=== PATIENT | female | born 1990 | race African-American/Black ===

== ENCOUNTER 2018-07-13 16:23 | Emergency (ER) | payer OTHER ==
[2018-07-13 17:50] LABS: ABS Basophils 0.1 10^3/ul (0-0.2); ABS Eosinophils 0.4 10^3/ul (0-0.6); ABS Monocytes 0.5 10^3/ul (0-0.8); ABS Neutrophils 3.9 10^3/ul (1.5-7.7); ABS Nucleated RBC 0 10^3/ul; Eosinophil % 4.6 % (0-6); Hematocrit 38 % (35-47); Hemoglobin 12.8 g/dl (12.0-16.0); Lymphocyte % 45.6 % (25-47); Mean Corpuscular HGB Conc 33 g/dl (31-36); Mean Corpuscular Hemoglobin 28 pg (27-31); Mean Corpuscular Volume 84 fL (80-97); Mean Platelet Volume 7.6 um3 (7.4-10.4); Nucleated Red Blood Cells % 0.1; Platelet Count 465 10^3/ul (150-450); Red Blood Count 4.52 10^6/ul (4.00-5.40); Red Cell Distribution Width 15 % (10.5-15); White Blood Count 8.8 10^3/ul (3.5-10.8)
--- NOTE | 2018-07-13 18:01 | ED ---
- HPI Summary HPI Summary: 28F female presents with needlestick today. States she was given insulin injection subcutaneous. States there was no blood in the bevel. She states that she poked her middle finger as the needle broke through the side of the cap. She states it did not draw blood. She immediately made it bleed and washed her hand. She states she believes the patient is low risk for hiv. She states that patient has been to same person for many years. She states that the [facility] is trying to run the blood on the patient. She informed her supervisor inspection department. - History of Current Complaint Chief Complaint: EDExposureBodyFluid Stated Complaint: NEEDLE STICK Time Seen by Provider: 07/13/18 16:39 PMH/Surg Hx/FS Hx/Imm Hx Endocrine/Hematology History: Denies: Hx Anticoagulant Therapy Cardiovascular History: Denies: Hx Myocardial Infarction - Immunization History Immunizations Up to Date: Yes Infectious Disease History: No Infectious Disease History: Denies: Traveled Outside the [place] in Last 30 Days - Family History Known Family History: Negative: Diabetes - Social History Alcohol Use: None Substance Use Type: Reports: None Smoking Status (MU): Current Every Day Smoker Review of Systems Negative: Fever Negative: Chest Pain Negative: Shortness Of Breath Positive: Other - needle stick All Other Systems Reviewed And Are Negative: Yes Physical Exam Triage Information Reviewed: Yes Vital Signs On Initial Exam: Initial Vitals Temp Pulse Resp BP Pulse Ox 97.8 F 85 16 121/72 100 07/13/18 16:29 07/13/18 16:29 07/13/18 16:29 07/13/18 16:29 07/13/18 16:29 Vital Signs Reviewed: Yes Appearance: Positive: Well-Appearing Skin: Positive: Warm, Dry, Other - pinpoint lesion on left middle finger distal tip Head/Face: Positive: Normal Head/Face Inspection Eyes: Positive: Normal, Conjunctiva Clear ENT: Positive: Pharynx normal Respiratory/Lung Sounds: Positive: Clear to Auscultation, Breath Sounds Present Cardiovascular: Positive: Normal, RRR Musculoskeletal: Positive: Strength/ROM Intact - left middle finger Neurological: Positive: Normal Psychiatric: Positive: Normal Diagnostics - Vital Signs Vital Signs Temp Pulse Resp BP Pulse Ox 07/13/18 16:29 97.8 F 85 16 121/72 100 - Laboratory Lab Results: Lab Results 07/13/18 Range/Units 17:43 WBC 8.8 (3.5-10.8) 10^3/ul RBC 4.52 (4.00-5.40) 10^6/ul Hgb 12.8 (12.0-16.0) g/dl Hct 38 (35-47) % MCV 84 (80-97) fL MCH 28 (27-31) pg MCHC 33 (31-36) g/dl RDW 15 (10.5-15) % Plt Count 465 H (150-450) 10^3/ul MPV 7.6 (7.4-10.4) um3 Neut % (Auto) 43.8 (38-83) % Lymph % (Auto) 45.6 (25-47) % [place] % (Auto) 5.2 (0-7) % Eos % (Auto) 4.6 (0-6) % Baso % (Auto) 0.8 (0-2) % Absolute Neuts (auto) 3.9 (1.5-7.7) 10^3/ul Absolute Lymphs (auto) 4.0 (1.0-4.8) 10^3/ul Absolute Monos (auto) 0.5 (0-0.8) 10^3/ul Absolute Eos (auto) 0.4 (0-0.6) 10^3/ul Absolute Basos (auto) 0.1 (0-0.2) 10^3/ul Absolute Nucleated RBC 0 10^3/ul Nucleated RBC % 0.1 Result Diagrams: 07/13/18 17:43 07/13/18 17:43 Lab Statement: Any lab studies that have been ordered have been reviewed, and results considered in the medical decision making process. Needlestick Course/Dx - Course Course Of Treatment: 28F female presents with needlestick today. States she was given insulin injection subcutaneous. States there was no blood in the bevel. She states that she poked her middle finger as the needle broke through the side of the cap. She states it did not draw blood. She immediately made it bleed and washed her hand. She states she believes the patient is low risk for hiv. She states that patient has been to same person for many years. She states that the [facility] is trying to run the blood on the patient. She informed her supervisor inspection department. on exam has small pinpoint prick of left middle finger. got base line labs and discussed subq injection is low risk and with what believe is low risk patient will not treat at this time unless lab work on patient comes back positive for hiv. patient understand and agrees with plan. - Diagnoses Provider Diagnoses: Needlestick injury accident Discharge - Sign-Out/Discharge Documenting (check all that apply): Patient Departure - Discharge Plan Condition: Good Disposition: HOME Referrals: No Primary Care Phys,NOPCP [Primary Care Provider] - Additional Instructions: Follow up with supervisor inspection department Return to ED if patient is found to be positive - Billing Disposition and Condition Condition: GOOD Disposition: Home
[2018-07-13 18:05] LABS: EGFR Non-African American 97.3 (>60)
[2018-07-13 18:14] VITALS: BP 116/70
== END 2018-07-13 18:13 | disposition home or self-care (01) ==
LOC: ED 16:23
DX: S61.233A Puncture wound without foreign body of left middle finger without damage to nail, initial encounter (principal); W46.0XXA Contact with hypodermic needle, initial encounter; Y93.F9 Activity, other caregiving; Y92.129 Unspecified place in nursing home as the place of occurrence of the external cause
CPT/HCPCS: 36415; 80053; 84702; 85025; 86703; 86706; 86803; 87340; 99282